=== PATIENT | male | born 1950 | race Caucasian/White ===

== ENCOUNTER 2018-06-29 07:51 | Emergency (ER) | payer MEDICARE, BC ==
[~2018-06-29] VITALS: Ht 177.8 cm; Wt 86.5 kg
[2018-06-29] MEDS ORDERED: heparin 10,000 units/1 ML INJ IV ONE (08:35)
[2018-06-29] MEDS ORDERED: ondansetron/PF 4mg/2ml inj IV ONE (08:35)
[2018-06-29] MEDS ORDERED: etomidate 2mg/ml inj. IV ONE (08:35)
[2018-06-29] MEDS ORDERED: fentaNYL/PF 50MCG/1 ML 2ML syringe IV ONE (08:35)
[2018-06-29 08:43] LABS: BASOPHILS % (AUTO) 0.6 % (0-1); EOSINOPHILS # (AUTO) 0.2 X10'3 (0-0.9); EOSINOPHILS % (AUTO) 2.8 % (0-6); HEMOGLOBIN 16.3 g/dl (14.0-17.9); LYMPHOCYTES # (AUTO) 2.3 X10'3 (1.1-4.8); LYMPHOCYTES % (AUTO) 28.8 % (21-51); MEAN CORPUSCULAR HEMOGLOBIN 31.7 PG (27.0-31.0); MEAN CORPUSCULAR HGB CONC 33.9 % (33.0-36.5); MEAN CORPUSCULAR VOLUME 93.4 FL (78-98); MEAN PLATELET VOLUME 9.5 FL (7.4-10.4); MONOCYTES # (AUTO) 0.3 X10'3 (0-0.9); MONOCYTES % (AUTO) 4.4 % (2-12); NEUTROPHILS % (AUTO) 63.4 % (42-75); PLATELET COUNT 171 X10'3 (140-440); RED BLOOD COUNT 5.13 X10'6 (4.70-6.10); RED CELL DISTRIBUTION WIDTH 13.4 % (11.5-14.5); WHITE BLOOD COUNT 7.9 X10'3 (4.5-11.0)
--- NOTE | 2018-06-29 08:49 | NUR ---
DR Mcghee AT BEDSIDE, RT AT BEDSIDE. 0848 CONSENT VERIFIED, TIME OUT PERFORMED. 0849 PT SYNC CARDIOVERSION @150 FOR RAPID ONSET AFIB 0850 PT SYNC CARDIOVERSION @150 0851 PT SYNC CARDIOVERSION @200 PT STILL IN AFIB @95 0851 EKG ORDERED, AND 150 AMIODARONE.
[2018-06-29] MEDS ORDERED: amiodarone 50MG/ML inj IV ONE (08:55)
--- NOTE | 2018-06-29 08:55 | NUR ---
AMIODARONE ADMIN, EKG COMPLETED.
--- NOTE | 2018-06-29 08:58 | NUR ---
DR. BECKER AT BEDSIDE.
[2018-06-29 09:05] LABS: ALANINE AMINOTRANSFERASE 44 U/L (12-78); ALBUMIN 3.8 G/DL (3.4-5.0); ALKALINE PHOSPHATASE 53 IU/L (46-116); ANION GAP 12 (8-16); BILIRUBIN,TOTAL 2.3 MG/DL (0.1-1.0); BLOOD UREA NITROGEN 14 MG/DL (7-18); BUN/CREATININE RATIO 11.8 (5.4-32.0); CALCIUM 8.8 MG/DL (8.5-10.1); CHLORIDE 105 MMOL/L (99-107); CREATININE 1.19 MG/DL (0.60-1.10); GLUCOSE 144 MG/DL (70-104); SODIUM 141 MMOL/L (135-145); TOTAL CARBON DIOXIDE 23.9 MMOL/L (24-32); TOTAL PROTEIN 7.5 G/DL (6.4-8.2); eGFR 61 ML/MIN
[2018-06-29 09:10] LABS: ASPARTATE AMINO TRANSFERASE 33 U/L (10-37)
[2018-06-29 09:20] LABS: INR 1.2 INR; PARTIAL THROMBOPLASTIN TIME 29 SECONDS (22-32); PROTHROMBIN TIME 12.5 SECONDS (9.0-12.0)
--- NOTE | 2018-06-29 10:05 | NUR ---
patient asleep at this time.
--- NOTE | 2018-06-29 10:21 | NUR ---
patient to call his brother to transport him home.
[2018-06-29] MEDS ORDERED: APIX5TAB3 PO (10:33)
[2018-06-29] MEDS ORDERED: SOTA80TA PO (10:33)
[2018-06-29 11:45] VITALS: BP 114/90
[2018-06-29] MEDS ORDERED: rocuronium bromide 100mg/10ml (10mg/ml) injection IV ONE (12:00)
[2018-06-29] MEDS ORDERED: epiNEPHrine 0.1mg/ml 10ml syringe ONE (12:00)
[2018-06-29] MEDS ORDERED: etomidate 2mg/ml inj. ONE (12:00)
[2018-06-29] MEDS ORDERED: 0.9 % SODIUM CHLORIDE 10 ML VIAL ONE (12:00)
[2018-07-01] MEDS ORDERED: atropine 0.1mg/ml 10ml syringe ONE (12:00)
[2018-07-01] MEDS ORDERED: epiNEPHrine 0.1mg/ml 10ml syringe ONE (12:00)
[2018-07-01] MEDS ORDERED: APIX5TAB3 PO (15:00)
[2018-07-01] MEDS ORDERED: SOTA80TA PO (15:00)
== END 2018-06-29 11:48 | disposition home or self-care (01) ==
LOC: ER 07:52
DX: I48.91 Unspecified atrial fibrillation (principal); R06.02 Shortness of breath; F17.200 Nicotine dependence, unspecified, uncomplicated; Z98.890 Other specified postprocedural states; Z91.013 Allergy to seafood
CPT/HCPCS: 36415; 71045; 80053; 84439; 84443; 84484; 85025; 85379; 85610; 85730; 92960; 93005; 96374; 99291; J0171; J0282; J1644; J2405; J3010; 96375; J3490

== ENCOUNTER 2018-06-29 21:53 | Inpatient (IN) | payer MEDICARE, BC | END 2018-07-06 12:20 | disposition short-term general hospital (02) | LOC: ER 21:53 → ICU 2S 07-01 10:35 → ED HOLD 06-30 01:19 → PCU 3S 06-30 13:50 | PROC: 4A023N8 Measurement of Cardiac Sampling and Pressure, Bilateral, Percutaneous Approach (ICD-10-PCS; principal; ~2018-06-29) | PROC: 02713EZ Dilation of Coronary Artery, Two Arteries with Two Intraluminal Devices, Percutaneous Approach (ICD-10-PCS; ~2018-06-29) | PROC: 5A02210 Assistance with Cardiac Output using Balloon Pump, Continuous (ICD-10-PCS; ~2018-06-29) | PROC: B2110ZZ Fluoroscopy of Multiple Coronary Arteries using High Osmolar Contrast (ICD-10-PCS; ~2018-06-29) | PROC: 5A1955Z Respiratory Ventilation, Greater than 96 Consecutive Hours (ICD-10-PCS; ~2018-06-29) | DX: I50.21 Acute systolic (congestive) heart failure (principal); J96.00 Acute respiratory failure, unspecified whether with hypoxia or hypercapnia; R57.0 Cardiogenic shock; I48.91 Unspecified atrial fibrillation; J40 Bronchitis, not specified as acute or chronic; I25.10 Atherosclerotic heart disease of native coronary artery without angina pectoris ==